=== PATIENT | male | born 1970 | race Hispanic/Latino ===

== ENCOUNTER 2019-03-20 21:52 | Emergency (ER) | payer MEDICAID ==
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
[2019-03-20 22:06] VITALS: BP 113/82
--- NOTE | 2019-03-20 22:31 | XRay Report ---
PROCEDURE: XR SPINE LUMBOSACRAL 2-3V TECHNIQUE: Lumbar spine radiographs, views. HISTORY: low back pain COMPARISONS: None . FINDINGS: Alignment: Normal . Vertebral body heights/Disk spaces: Normal . Fracture(s): None . Facets: Normal . Bone mineralization: Normal . IMPRESSION: Normal Examination . This document is electronically signed by Juvencio Lehman MD., March 20 2019 10:29:45 PM ET
[2019-03-21] MEDS ORDERED: IBUPROFEN PO ONE (00:31)
[2019-03-21] MEDS ORDERED: IBUPROFEN ONE (00:35)
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
== END 2019-03-21 01:30 | disposition home or self-care (01) ==
LOC: ED 21:52
DX: S30.0XXA Contusion of lower back and pelvis, initial encounter (principal); I10 Essential (primary) hypertension; J44.9 Chronic obstructive pulmonary disease, unspecified; E78.00 Pure hypercholesterolemia, unspecified; F17.200 Nicotine dependence, unspecified, uncomplicated; F12.10 Cannabis abuse, uncomplicated; E66.9 Obesity, unspecified; Z68.37 Body mass index [BMI] 37.0-37.9, adult; W51.XXXA Accidental striking against or bumped into by another person, initial encounter; Y93.02 Activity, running; Y92.098 Other place in other non-institutional residence as the place of occurrence of the external cause; Y99.8 Other external cause status; Z88.5 Allergy status to narcotic agent
CPT/HCPCS: 72100; 99284

== ENCOUNTER 2019-03-27 00:03 | Emergency (ER) | payer MEDICAID ==
[2019-03-27 00:33] LABS: Mean Corpuscular HGB Conc 36 % (32-34); Mean Corpuscular Volume 91 fl (84-94); Platelet Count 311 K/mm3 (140-440); Red Blood Count 4.53 M/mm3 (3.65-5.03); Red Cell Distribution Width 13.5 % (13.2-15.2)
[2019-03-27 00:43] LABS: Hematocrit 41.2 % (35.5-45.6); Hemoglobin 14.8 gm/dl (11.8-15.2)
[2019-03-27 00:46] LABS: Bilirubin,Urine NEG (Negative); Blood,Urine SM (Negative); Color,Urine Yellow (Yellow); Mucus,Urine FEW /HPF; Urobilinogen,Urine < 2.0 mg/dL (<2.0)
[2019-03-27 00:55] LABS: Amphetamine Screen,Urine PRESUMPTIVE NEGATIVE; Benzodiazepines Screen,Urine PRESUMPTIVE NEGATIVE; Cocaine Screen,Urine PRESUMPTIVE NEGATIVE; Methadone Screen,Urine PRESUMPTIVE NEGATIVE; Opiate Screen,Urine PRESUMPTIVE NEGATIVE
--- NOTE | 2019-03-27 01:08 | Emergency Department Report ---
HPI - General Chief Complaint: Psych Time Seen by Provider: 03/27/19 00:49 - HPI HPI: 49-year-old male who states he has a history of multiple personality disorder, depression, presents to the ED because of voices telling him to hurt himself. Has had similar symptoms before, treated to increased stress. He lives in a long-term. ED Past Medical Hx - Past Medical History Hx Hypertension: Yes Hx Psychiatric Treatment: Yes (Bipolar, Schizoaffective, Grandiose Behavior, PTSD) Hx Asthma: Yes Hx COPD: Yes Additional medical history: Obesity, High Cholesterol - Surgical History Additional Surgical History: Nasal Surgery - Social History Smoking Status: Current Every Day Smoker - Medications Home Medications: Home Medications Medication Instructions Recorded Confirmed Last Taken Type Ketorolac [Toradol] 10 mg PO Q6H PRN #15 tablet 03/21/19 Unknown Rx methOCARBAMOL [Robaxin TAB] 750 mg PO Q8H PRN #14 tablet 03/21/19 Unknown Rx ED Review of Systems ROS: Stated complaint: MH Other details as noted in HPI Comment: All other systems reviewed and negative Constitutional: denies: chills Eyes: denies: eye pain Genitourinary: denies: urgency Skin: denies: rash Psychiatric: anxiety, depression, auditory hallucinations Physical Exam - Physical Exam Vital Signs: Vital Signs 03/27/19 00:07 Temperature 97.8 F Pulse Rate 98 H Respiratory 18 Rate Blood Pressure 131/94 O2 Sat by Pulse 97 Oximetry Physical Exam: Physical Exam: - General Limitations: No Limitations General appearance: alert, in no apparent distress. - Head Head exam: Present: atraumatic, normocephalic - Eye Eye exam: Present: normal appearance - ENT ENT exam: Present: mucous membranes moist - Neck Neck exam: Present: normal inspection - Respiratory Respiratory exam: Present: normal lung sounds bilaterally. Absent: respiratory distress - Cardiovascular Cardiovascular Exam: Present: normal rhythm. Absent: systolic murmur, diastolic murmur, rubs, gallop - GI/Abdominal GI/Abdominal exam: Present: soft, normal bowel sounds - Extremities Exam Extremities exam: Present: normal inspection - Back Exam Back exam: Present: normal inspection - Neurological Exam Neurological exam: Present: alert, oriented X3 - Psychiatric Psychiatric exam: depressed mood - Skin Skin exam: Present: warm, dry, intact, normal color. Absent: rash ED Course Vital Signs 03/27/19 00:07 Temperature 97.8 F Pulse Rate 98 H Respiratory 18 Rate Blood Pressure 131/94 O2 Sat by Pulse 97 Oximetry ED Medical Decision Making - Lab Data Result diagrams: 03/27/19 00:12 Critical care attestation.: If time is entered above; I have spent that time in minutes in the direct care of this critically ill patient, excluding procedure time. ED Disposition Clinical Impression: Severe major depression, Suicidal ideations Disposition: [id number]/TX-[id number] PSY HOSP/PSY UNIT Is pt being admited?: No Does the pt Need Aspirin: No Condition: Stable Referrals: PRIMARY CARE, [Primary Care Provider] - 3-5 Days
[2019-03-27 01:26] LABS: BUN/Creatinine Ratio 21; Blood Urea Nitrogen 21 mg/dL (9-20); Calcium 9.8 mg/dL (8.4-10.2); Hemolysis Index 11
[2019-03-27 01:30] LABS: Cannabinoid Screen,Urine PRESUMPTIVE POSITIVE
[2019-03-27] MEDS ORDERED: ROBAXIN PO PRN (01:32)
[2019-03-27] MEDS ORDERED: TORADOL PO PRN (01:32)
[2019-03-27 04:20] LABS: Basophils % (Manual) 0 % (0.0-1.8); Large Platelets 1+; Platelet Estimate Consistent w Auto; RBC Morphology Normal; Total Cells Counted 100
[2019-03-27] MEDS ORDERED: NEURONTIN PO SCH (06:00)
[2019-03-27 08:36] VITALS: BP 124/84
[2019-03-27] MEDS ORDERED: NORVASC PO SCH (10:00)
[2019-03-27] MEDS ORDERED: PEPCID PO SCH (10:00)
--- NOTE | 2019-03-27 13:09 | Consultation ---
History of Present Illness - Reason for Consult Consult date: 03/27/19 Reason for consult: Mental Health Evaluation Requesting physician: ERMELINDA FELIX - Chief Complaint Chief complaint: "I was hearing voices" - History of Present Psychiatric Illness 49 y.o. white male who presented to the ER for AH's and SI's. Today the patient was tangent during the assessment. He stated that something at his [facility] was upsetting him. He was asked about the issues he was having, his answers were somewhat not logical. He stated that he was hearing voices telling him to kill himself. He stated that he was discharged from a mental health facility 2 days ago. He would not confirm or deny if he has attempted suicide in the past when asked. He stated that if he returned to his [facility], he may kill himself. He denies HI's and VH's. He denies erratic sleep and a poor appetite. He denies recreational drug use, but was positive for marijuana. He denies alcohol consumption (etoh). Medications and Allergies Allergies Allergy/AdvReac Type Severity Reaction Status Date / Time haloperidol [From Haldol] Allergy Unknown Verified 03/20/19 21:59 risperidone [From Risperdal] Allergy Unknown Verified 03/20/19 21:59 Home Medications Medication Instructions Recorded Confirmed Last Taken Type Ketorolac [Toradol] 10 mg PO Q6H PRN #15 tablet 03/21/19 03/27/19 03/26/19 10:00 Rx methOCARBAMOL [Robaxin TAB] 750 mg PO Q8H PRN #14 tablet 03/21/19 03/27/19 03/26/19 10:00 Rx Amlodipine Besylate [Norvasc] 10 mg PO QDAY 03/27/19 03/27/19 03/26/19 10:00 History Atorvastatin Calcium [Lipitor] 40 mg PO QHS 03/27/19 03/27/19 03/26/19 22:00 History Budesonide/Formoterol Fumarate 10.2 gm IH BID 03/27/19 03/27/19 Unknown History [Symbicort 160-4.5 Mcg Inhaler] Famotidine [Pepcid] 20 mg PO QDAY 03/27/19 03/27/19 03/26/19 10:00 History Gabapentin [Neurontin] 300 mg PO Q8HR 03/27/19 03/27/19 03/26/19 22:00 History OLANZapine [Zyprexa] 5 mg PO QHS 03/27/19 03/27/19 03/26/19 22:00 History Past psychiatric history - Past Medical History Past Medical History: hypertension Past Surgical History: No surgical history - past Psychiatric treatment and history psychiatric treatment history: Inpatient psy services in the past. Denies a fam psy hx. - Social History Social history: other (Reside at a [facility]. ) Mental Status Exam - Vital signs Last Vital Signs Temp 97.4 F L 03/27/19 08:00 Pulse 90 03/27/19 08:00 Resp 18 03/27/19 08:00 BP 124/84 03/27/19 08:00 Pulse Ox 97 03/27/19 08:00 - Exam Narrative exam: MSE: Appearance: calm, cooperative Behavior: regular eye contact Speech: regular rate and tone Mood: "irritated" Affect: congruent to mood Thought Process: tangential Thought Content: denies HI's and VH, paranoia Motor Activity: sitting up in the bed Cognition: A/O x 3 Insight: variable Judgment: variable Results Result Diagrams: 03/27/19 00:12 03/27/19 00:12 Abnormal lab results 03/27/19 03/27/19 03/27/19 Range/Units 00:12 00:12 00:12 WBC (4.5-11.0) K/mm3 MCH (28-32) pg MCHC (32-34) % Monocytes % (Manual) (0.0-7.3) % Eosinophils % (Manual) (0.0-4.3) % Seg Neutrophils # Man (1.8-7.7) K/mm3 Monocytes # (Manual) (0.0-0.8) K/mm3 Eosinophils # (Manual) (0.0-0.4) K/mm3 BUN 21 H (9-20) mg/dL Salicylates < 0.3 L (2.8-20.0) mg/dL Acetaminophen < 5.0 L (10.0-30.0) ug/mL 03/27/19 Range/Units 00:12 WBC 13.7 H (4.5-11.0) K/mm3 MCH 33 H (28-32) pg MCHC 36 H (32-34) % Monocytes % (Manual) 8.0 H (0.0-7.3) % Eosinophils % (Manual) 5.0 H (0.0-4.3) % Seg Neutrophils # Man 7.8 H (1.8-7.7) K/mm3 Monocytes # (Manual) 1.1 H (0.0-0.8) K/mm3 Eosinophils # (Manual) 0.7 H (0.0-0.4) K/mm3 BUN (9-20) mg/dL Salicylates (2.8-20.0) mg/dL Acetaminophen (10.0-30.0) ug/mL All other labs normal. Assessment and Plan Assessment and plan: Impression: Unspecified Mood DO with psy features. Cannabis Use DO. Today the patient was tangent during the assessment. DDx: Bipolar DO with psychosis, Schizoaffective DO, MDD with psychosis, Substance Induced Mood/Psychotic DO Recommendation/Plan: Continue 1013. . Dispo: The patient was accepted at [facility] for inpatient psy services. Will staff with Dr Isi Mccormack.
== END 2019-03-27 10:34 ==
LOC: ED 00:03 → EEVIPCON 00:03 → ED 10:34
DX: F31.9 Bipolar disorder, unspecified (principal); F25.9 Schizoaffective disorder, unspecified; F43.10 Post-traumatic stress disorder, unspecified; I10 Essential (primary) hypertension; J44.9 Chronic obstructive pulmonary disease, unspecified; E78.00 Pure hypercholesterolemia, unspecified; F17.200 Nicotine dependence, unspecified, uncomplicated; F12.10 Cannabis abuse, uncomplicated; Z88.4 Allergy status to anesthetic agent
CPT/HCPCS: 36415; 80048; 80307; 81001; 85007; 85025; 99285; G0480; 80320